=== PATIENT | female | born 1980 | race Two or more races ===

== ENCOUNTER 2017-05-10 03:20 | Inpatient (IN) | payer OTHER ==
[2017-05-10] MEDS ORDERED: AMPICILLIN - 2 GM in SODIUM CHLORIDE 100 ML IVPB ONE (04:00)
[2017-05-10] MEDS: ELECTROLYTE-148 SOLN 1,000 ML IV SCH ×2 (04:00→05:15)
[2017-05-10] MEDS ORDERED: AMPICILLIN SODIUM 2 GM VIAL ONE (04:03)
--- NOTE | 2017-05-10 04:26 | HP ---
Past Medical History - Primary Care Physician PCP:: Barry Draper - Admission Chief Complaint: 36yo P1 with at EGA 38w 5d admitted with spontaneous active labor. The pt is requesting a TOLAC. 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: No: Alzheimer's, CVA, Dementia, Migraine, Multiple Sclerosis, Peripheral Neuropathy, Parkinson's, Seizure, Syncope, TIA, Vertigo, Other Cardiovascular: Yes: HTN Pulmonary: No: Asthma, Bronchitis, Cancer, COPD, O2 Dependent, Pneumonia, Previously Intubated, Pulmonary Embolus, Pulmonary Fibrosis, Sleep Apnea, Other Gastrointestinal: No: Ascites, Cancer, Constipation, Crohn's Disease, Diverticulitis, Diverticulosis, Esophageal Varices, Gastritis, GERD, GI Bleed, Hemorrhoids, Hiatal Hernia, Inflamatory Bowel Disease, Irritable Bowel Disease, Pancreatitis, Peptic Ulcer Disease, Ulcerative Colitis, Other Hepatobiliary: No: Cirrhosis, Cholelithiasis, Cholecystitis, Choledocholithiasis , Hepatitis A, Hepatitis B, Hepatitis C, Other Renal/: No: Renal Failure, Renal Inusuff, BPH, Cancer, Hematuria, Hemodialysis , Neurogenic Bladder, Renal Calculi, UTI, Other Reproductive: No: Ectopic , Endometriosis, Fibroids, PID, Polycystic Ovary Syndrome, Postmenopausal, Other ...: 2 ...Para: 1 ...Term: 0 ...: 1 (36wk PPROM with chorio in 2011) Heme/Onc: No: Anemia, B12 Deficiency, Bleeding Disorder, Cancer, Current Chemotherapy, Current Radiation Therapy, Hemochromatosis, Hypercoaguable State, Myeloproliferative Synd, Sickle Cell Disease, Sickle Cell Trait, Thrombocytopenia, Other Infectious Disease: No: AIDS, C-Diff, Herpes Zoster, HIV, MRSA, STD's, Tuberculosis, VREF, Other Psych: No: Addictions, Anxiety, Bipolar, Depression, Panic, Psychosis, Schizophrenia, Other Musculoskeletal: No: Bursitis, Chronic low back pain, Hemiparesis, Hemiplegia, Osteoarthritis, Paraplegia, Other Rheumatology: No: Fibromyalgia, Gout, Lupus, Rheumatoid Arthritis, Sarcoidosis, Vasculitis, Other ENT: No: Allergic Rhinitis, Sinusitis, Other Endocrine: No: Vashon's Disease, [place]'s Disease, Diabetes Insipidus, Diabetes Mellitus, Hyperparathyroidism, Hyperthyroidism, Hypothyroidism, Osteopenia, SIADH, Other Dermatology: No: Basal Cell, Cellulitis, Eczema, Melanoma, Psoriasis, Squamous Cell, Other - Past Surgical History Past Surgical History: Yes: (36wk PPROM with chorio in 2011) Hx Myomectomy: No Hx Transabdominal Cerclage: No - Smoking History Smoking history: Never smoked Have you smoked in the past 12 months: No - Alcohol/Substance Use Hx Alcohol Use: No History of Substance Use: reports: None - Social History ADL: Independent 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 History of Recent Travel: No Family Disease History - Family Disease History Family History: Unremarkable Review of Systems - Review of Systems Constitutional: reports: No Symptoms, Other (painful contractions) Eyes: reports: No Symptoms HENT: reports: No Symptoms Neck: reports: No Symptoms Cardiovascular: reports: No Symptoms Respiratory: reports: No Symptoms Gastrointestinal: reports: No Symptoms Genitourinary: reports: No Symptoms Breasts: reports: No Symptoms Reported Musculoskeletal: reports: No Symptoms Integumentary: reports: No Symptoms Neurological: reports: No Symptoms Endocrine: reports: No Symptoms Hematology/Lymphatic: reports: No Symptoms Psychiatric: reports: No Symptoms Pain Intensity: 7 Physical Exam - Maternity Constitutional: Yes: No Distress, Calm, Obese Eyes: Yes: WNL, Conjunctiva Clear HENT: Yes: WNL, Atraumatic, Normocephalic Neck: Yes: WNL, Supple, Trachea Midline Cardiovascular: Yes: WNL, Regular Rate and Rhythm Lungs: Clear to auscultation, Normal air movement Breast(s): Yes: WNL - Abdominal Exam/OB Fundal Height: 39 Number of Fetuses: Single Presentation: Vertex Contractions: Yes Regularity: Irregular (q4-6min) Intensity: Mod/Strong Monitor Mode: External Heart Rate (range): 150 Heart Rate Location: Midline Category: I Accelerations: Non-Uniform Decelerations: None - Vaginal Exam/OB Vaginal Bleediing: No Speculum Exam: No Dilatation (cm): 7 Effacement (%): 90 Amniotic Membrane Status: Bulging Presentation: Vertex/Position Station: -3 (adequate gynecoid pelvimetry) - Physical Exam Musculoskeletal: Yes: WNL Extremities: Yes: WNL Edema: No Edema: LLE: Trace, RLE: Trace Integumentary: Yes: WNL Deep Tendon Reflex Grade: Normal +2 ...Motor Strength: WNL Psychiatric: Yes: WNL, Alert, Oriented Hemorrhage Risk Assessment - Risk Factors Medium Risk Factors: Yes: Prior , uterine surgery,or multiple laparotomies High Risk Factors: Yes: None Risk Score: 1 Risk Level: Medium Risk Imaging - Results Ultrasound: Report Reviewed Assessment/Plan 36yo P1 with at EGA 38w 5d admitted with spontaneous active labor. The pt is requesting a TOLAC. 1. Admit to L&D 2. Pt is s/p prior C/S at 36wks (admitted with chorio after 24hrs-- likely low transverse, no op report available) in the past w/o other uterine surgery or contraindications to TOLAC/ 3. Consents reviewed and signed. Reviewed risks of Trial of Labor after section, including but not limited to: - Risks of failed trial of labor resulting in a repeat delivery in approximately 20-40% of patients who are attempting - Risks of uterine rupture and/or uterine scar dehiscence resulting in emergency delivery (0.2 - 1.5% risk) - Risks of hemorrhage, DIC, hysterectomy, blood transfusion, injury to surrounding organs, need for additional future surgery, etc. - Risks of severe neurologic compromise/injury, or - Rare risks of maternal 4. GBS positive 5. FHT is Category I and fetus requires no intervention 6. Anesthesia and Chucky notified of patients TOLAC. 7. Plan to proceed with expectant managent.
[2017-05-10 04:33] VITALS: BMI 30.5
[2017-05-10] MEDS ORDERED: FENTANYL/BUPIVACAINE/NS/PF - PCEA - 50 ML DISP.SYRIN EP ONE (04:45)
[2017-05-10] MEDS ORDERED: NALOXONE HCL 0.4 MG/ML VIAL IVPUSH PRN (05:40)
[2017-05-10] MEDS ORDERED: FENTANYL/BUPIVACAINE/NS/PF - PCEA - 50 ML DISP.SYRIN EP SCH (05:45)
[2017-05-10] MEDS ORDERED: AMPICILLIN SODIUM 1 GM VIAL ONE ×2 (07:59→11:41)
[2017-05-10] MEDS: AMPICILLIN - 1 GM in SODIUM CHLORIDE 100 ML IVPB SCH ×3 (08:00→19:25)
--- NOTE | 2017-05-10 08:48 | PN ---
Ante-Partal Exam - Subjective Subjective: No complaints. Epidural in place Vital Signs: Vital Signs Temperature 98.5 F 05/10/17 08:30 Pulse Rate 80 05/10/17 08:30 Respiratory Rate 20 05/10/17 08:30 Blood Pressure 114/67 05/10/17 08:30 O2 Sat by Pulse Oximetry (%) 100 05/10/17 05:25 Bleeding: No Headache: No Visual changes: No Right upper quadrant pain: No Pain (scale 1-10): 0 - Contractions Contractions: Yes Regularity: Regular Intensity: Unaware Monitor Mode: External - Exam during Labor Heart Rate: 145 Variability: Moderate Heart Rate Location: Midline Category: I Monitor Accelerations: Present Monitor Decelerations: None Exam: Vaginal Dilatation (cm): 9 Effacement (%): 90 Amniotic Membrane Status: Bulging Presentation: Vertex Station: -1 - Intrapartum Hemorrhage Risk Medium Risk Factors: None High Risk Factors: None Risk Score: 0 Risk Level: Low Risk - Assessment/Plan Assessment/Plan: 36yo P1 with active labor in active phase. Fetus with Category I tracing. Plan to await spont head dissent.
--- NOTE | 2017-05-10 09:40 | PN ---
Ante-Partal Exam - Subjective Subjective: Patient comfortable s/p epidural No complaints Vital Signs: Vital Signs Temperature 98.5 F 05/10/17 08:30 Pulse Rate 88 05/10/17 09:15 Respiratory Rate 20 05/10/17 09:15 Blood Pressure 108/71 05/10/17 09:15 O2 Sat by Pulse Oximetry (%) 100 05/10/17 05:25 Bleeding: No Headache: No Visual changes: No Right upper quadrant pain: No - Contractions Contractions: Yes Regularity: Regular Intensity: Mod/Strong Monitor Mode: External - Exam during Labor Heart Rate: 140 Variability: Moderate Heart Rate Location: Midline Category: I Monitor Accelerations: Present Monitor Decelerations: None Exam: Vaginal Dilatation (cm): 10 Effacement (%): 100 Amniotic Membrane Status: Ruptured Amniotic Fluid: Clear Presentation: Vertex Station: +2 - Intrapartum Hemorrhage Risk Medium Risk Factors: None High Risk Factors: None Risk Score: 0 Risk Level: Low Risk - Assessment/Plan Assessment/Plan: 36 yo TOLAC, active labor 1. Good cervical change, AROM performed 0920, clear fluid noted 2. GBS positive - on ampicillin per protocol 3. Category I FHT 4. Adequate pain control with epidural 5. Will proceed with expectant management
[2017-05-10] MEDS ORDERED: LIDOCAINE HCL 1% PRESERVATIVE FREE - 30ML VIAL ONE (09:59)
[2017-05-10] MEDS ORDERED: OXYTOCIN 20 UNITS in 0.9% NS 40 UNIT/2,000 ML INFUS.BAG IV ONE (09:59)
[2017-05-10] MEDS ORDERED: IBUPROFEN 600 MG TABLET (FP) PO ONE (14:47)
[2017-05-10] MEDS ORDERED: ACETAMINOPHEN 325 MG TABLET (FP) ONE (14:47)
--- NOTE | 2017-05-10 14:48 | PN ---
Delivery - Delivery Vaginal Delivery: V-Miko Type of Anesthesia: Epidural Episiotomy/Laceration: 3rd degree (partial) EBL (cc): 500 Delivery, Single - Stages of Labor Date 1st Stage Initiatied: 05/10/17 Time 1st Stage Initiated: 00:00 Date 2nd Stage Initiated: 05/10/17 Time 2nd Stage Initiated: 09:20 Date of Delivery: 05/10/17 Time of Delivery: 13:54 Date Placenta Delivered: 05/10/17 Time Placenta Delivered: 14:15 Placenta: Yes: Spontaneous - Condition of Infant Director Of Compliance/Surgical Manager Present: No Gender: Female Weight: 7 lb 3 oz Position: Left, OA Total Hours ROM (Hrs/Mins): 4h 37min - 1 Minute Total Score: 9 5 Minutes Total Score: 9 - Feeding Plan Initial Plan: Elected not to breastfeed exclusively throughout hospitalization Remarks - Remarks Remarks: Patient progressed to fully dilated and at 1354 via delivered a viable female infant in LIVAN position, APGARs 9,9. Weight and length unknown at this time. Head delivered spontaneously followed by left compound hand noted, shoulders and body followed without difficulty. with spontaneous cry and placed on mother's abdomen. Nose and mouth was bulb suctioned. Cord was clamped and cut. Perineum and vagina examined, a partial third degree laceration was noted and repaired in the usual fashion. Rectal exam revealed no sutures in rectum. Placenta was delivered spontaneously and intact. 20 units of pitocin in 1 L IVF was given. All counts correct x 2. Mother and infant stable in LDR. EBL 500cc.
[2017-05-10] MEDS: IBUPROFEN 600 MG TABLET (FP) PO PRN ×2 (14:50→21:47)
[2017-05-10] MEDS: ACETAMINOPHEN 325 MG TABLET (FP) PO PRN ×2 (14:50→21:46)
[2017-05-10] MEDS ORDERED: BISACODYL 10 MG SUPP.RECT RC PRN (16:00)
[2017-05-10] MEDS ORDERED: BENZOCAINE 28 GM HEMORRHOIDAL OINTMENT TP PRN (16:00)
[2017-05-10] MEDS ORDERED: WITCH HAZEL 50% (TUCKS) 40 PAD/JAR PAD TP PRN (16:00)
[2017-05-10] MEDS ORDERED: OXYTOCIN 20 UNITS in 0.9% NS 20 UNIT/1,000 ML INFUS.BAG IV SCH (16:00)
[2017-05-10] MEDS ORDERED: BENZOCAINE 20% 57 GM BOTTLE TP PRN (16:00)
[2017-05-10] MEDS ORDERED: METHYLERGONOVINE MALEATE 0.2 MG/1 ML AMP IM PRN (16:00)
[2017-05-10] MEDS: FERROUS SO4 325 MG TABLET (FP) PO SCH (18:20)
[2017-05-10] MEDS: SENNOSIDES/DOCUSATE COMBO (SENNA PLUS) TABLET (UD) PO PRN (22:03)
--- NOTE | 2017-05-11 07:14 | PN ---
Post Progress Note - Subjective Subjective: Patient without acute complaints. Reports tolerating oral intake without nausea or vomiting. Ambulating without dizziness. Denies fevers or chills. Pain well controlled with oral pain medication. without difficulty. Passing flatus. Post Day: 1 Type of Delivery: Vital Signs: Vital Signs Temperature 97.8 F 05/11/17 06:00 Pulse Rate 80 05/11/17 06:00 Respiratory Rate 18 05/11/17 06:00 Blood Pressure 110/68 05/11/17 06:00 O2 Sat by Pulse Oximetry (%) 100 05/10/17 05:25 Breast Exam: Yes: Engorged Uterus: Yes: Fundus Firm, Fundus below umbilicus Abdomen/GI: Yes: Abdomen soft, Passing flatus, Tolerating PO. No: Abdominal Distention, Tender Lochia: Yes: Serosa Lochia, amount: Small Extremities: Yes: Calves non-tender. No: Calf tenderness, Edema Activity: Ambulating Assessment/Plan 36 yo PPD # 1 s/p successful , afebrile, vital signs stable, doing well 1. Continue routine care. 2. Follow up AM CBC 3. Rh positive status, no rhogam indicated. 4. Encourage ambulation 5. Continue oral pain medication 6. Anticipate discharge home #2
[2017-05-11] MEDS: FERROUS SO4 325 MG TABLET (FP) PO SCH ×3 (07:23→17:05)
[2017-05-11] MEDS: IBUPROFEN 600 MG TABLET (FP) PO PRN ×3 (07:23→20:38)
[2017-05-11] MEDS: ACETAMINOPHEN 325 MG TABLET (FP) PO PRN ×3 (07:24→20:37)
[2017-05-11 07:47] LABS: BASO % 0.1 % (0-2.0); HEMATOCRIT 27.7 % (32.4-45.2); HEMOGLOBIN 9.1 GM/dL (10.7-15.3); LYMPH % 16.2 % (8-40); MCH 28.5 pg (25.7-33.7); MCHC 32.9 g/dl (32.0-36.0); MEAN CELL VOLUME 86.6 fl (80-96); MEAN PLT VOLUME 7.8 fl (7.5-11.1); MONO % 7.4 % (3.8-10.2); NEUT % 75.3 % (42.8-82.8); PLATELET COUNT 194 K/MM3 (134-434); RDW 14.8 % (11.6-15.6); WHITE BLOOD COUNT 11.3 K/mm3 (4.0-10.0)
[2017-05-11] MEDS: PRENATAL VITAMINS W/ FOLIC ACID TABLET (FP) PO SCH (09:44)
[2017-05-11] MEDS: SENNOSIDES/DOCUSATE COMBO (SENNA PLUS) TABLET (UD) PO PRN (13:57)
[2017-05-11] MEDS ORDERED: SENNOSIDES 8.8 MG/5 ML BULK BOTTLE PO SCH (22:00)
[2017-05-11] MEDS ORDERED: SENNOSIDES/DOCUSATE COMBO (SENNA PLUS) TABLET (UD) PO PRN (22:00)
--- NOTE | 2017-05-12 07:37 | DS ---
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 Vital Signs: Vital Signs Temperature 97.9 F 05/11/17 22:00 Pulse Rate 104 H 05/11/17 22:00 Respiratory Rate 18 05/11/17 22:00 Blood Pressure 134/89 05/11/17 22:00 O2 Sat by Pulse Oximetry (%) 100 05/10/17 05:25 Constitutional: Yes: Well Nourished, No Distress, Calm Eyes: Yes: WNL, Conjunctiva Clear, EOM Intact HENT: Yes: WNL, Atraumatic, Normocephalic Neck: Yes: WNL, Supple, Trachea Midline Cardiovascular: Yes: WNL, Regular Rate and Rhythm Respiratory: Yes: WNL, Regular, CTA Bilaterally Gastrointestinal: Yes: WNL ...Rectal Exam: Yes: WNL Renal/: Yes: WNL ....Post : Yes: Uterus firm, Uterus non-tender, Slight lochia rubra Breast(s): Yes: WNL Musculoskeletal: Yes: WNL Extremities: Yes: WNL Edema: Yes Edema: LLE: Trace, RLE: Trace Integumentary: Yes: WNL Neurological: Yes: WNL, Alert, Oriented ...Motor Strength: WNL Psychiatric: Yes: WNL, Alert, Oriented Labs: CBC, BMP 05/11/17 07:05 Delivery - Delivery Vaginal Delivery: V-Miko Type of Anesthesia: Epidural Episiotomy/Laceration: 3rd degree (partial) EBL (cc): 500 Delivery, Single - Stages of Labor Date 1st Stage Initiatied: 05/10/17 Time 1st Stage Initiated: 00:00 Date 2nd Stage Initiated: 05/10/17 Time 2nd Stage Initiated: 09:20 Date of Delivery: 05/10/17 Time of Delivery: 13:54 Time Placenta Delivered: 14:15 Placenta: Yes: Spontaneous - Condition of Infant Overhauler/Senior Analyst Market Intelligence Present: No Infant Gender: Female Weight: 7 lb 3 oz Position: Left, OA Total Hours ROM (Hrs/Mins): 4h 37min - 1 Minute Total Score: 9 5 Minutes Total Score: 9 - [place] Feeding Plan Initial Plan: Elected not to breastfeed exclusively throughout hospitalization Discharge Summary Reason For Visit: LABOR/PREVIOUS C/SECTION Procedures: Principal: Condition: Good - Instructions Diet, Activity, Other Instructions: regular diet, follow up office 4 weeks Referrals: Barry Draper MD [Staff Physician] - Disposition: HOME - Home Medications Comprehensive Discharge Medication List: Ambulatory Orders Vitamins (Sjr) - 1 tab PO DAILY 05/10/17 Ibuprofen [Motrin -] 600 mg PO QID #28 tablet 05/11/17
[2017-05-12] MEDS: ACETAMINOPHEN 325 MG TABLET (FP) PO PRN (07:59)
[2017-05-12] MEDS: FERROUS SO4 325 MG TABLET (FP) PO SCH (07:59)
[2017-05-12] MEDS: IBUPROFEN 600 MG TABLET (FP) PO PRN (07:59)
[2017-05-12 08:18] VITALS: BP 116/76; PULSE 82; TEMP 98
[2017-05-12] MEDS: PRENATAL VITAMINS W/ FOLIC ACID TABLET (FP) PO SCH (09:35)
[2017-05-12] MEDS ORDERED: SENNOSIDES 8.6MG TABLET (FP) PO SCH (22:00)
== END 2017-05-12 11:50 | disposition home or self-care (01) | DRG 775 ==
LOC: JLDR 03:20 → J3W 16:06
PROVIDERS: ADMIT Obstetrics & Gynecology; ATTEND Obstetrics & Gynecology
PROC: 0DQR0ZZ Repair Anal Sphincter, Open Approach (ICD-10-PCS; principal; 2017-05-10)
PROC: 10E0XZZ Delivery of Products of Conception, External Approach (ICD-10-PCS; 2017-05-10)
PROC: 10907ZC Drainage of Amniotic Fluid, Therapeutic from Products of Conception, Via Natural or Artificial Opening (ICD-10-PCS; 2017-05-10)
DX: O70.20 Third degree perineal laceration during delivery, unspecified (principal); Z3A.38 38 weeks gestation of pregnancy; Z37.0 Single live birth
CPT/HCPCS: 36415; 59409; 85025